=== PATIENT | female | born 1970 | race Caucasian/White ===

== ENCOUNTER 2025-01-25 11:58 | Outpatient (CLI) | payer OTHER, SELFPAY ==
--- NOTE | 2025-01-25 09:15 | DI.RAD_ITS ---
Exam(s) XR STANDING ALIGNMENT XR KNEE RT 1V EXAM: XR STANDING ALIGNMENT CLINICAL HISTORY: DJD R KNEE. TECHNIQUE: 2D digital imaging was performed. Five images were obtained. COMPARISON: CR XR KNEE 4 VIEW RIGHT from 06/09/2024 MR MR KNEE RT WO CONTRAST from 06/22/2024 FINDINGS: BONES: The hips are well maintained. In the right knee, there is fwzf-wk-ejisoeik narrowing of the medial femoral tibial joint. There are small osteophytes seen in both the medial femoral tibial and patellofemoral joint spaces. The left knee shows minimal degenerative change with tiny osteophytes seen both medially and laterally.There is no significant leg length discrepancy. SOFT TISSUE: Normal. IMPRESSION: Ujcg-[id number] osteoarthritis of the right knee. DATA REPOSITORY: RADIATION DOSE DELIVERED:
--- NOTE | 2025-01-25 09:15 | DI.RAD_ITS ---
Exam(s) XR STANDING ALIGNMENT XR KNEE RT 1V EXAM: XR STANDING ALIGNMENT CLINICAL HISTORY: DJD R KNEE. TECHNIQUE: 2D digital imaging was performed. Five images were obtained. COMPARISON: CR XR KNEE 4 VIEW RIGHT from 06/09/2024 MR MR KNEE RT WO CONTRAST from 06/22/2024 FINDINGS: BONES: The hips are well maintained. In the right knee, there is mcez-ay-lpdpjwnq narrowing of the medial femoral tibial joint. There are small osteophytes seen in both the medial femoral tibial and patellofemoral joint spaces. The left knee shows minimal degenerative change with tiny osteophytes seen both medially and laterally.There is no significant leg length discrepancy. SOFT TISSUE: Normal. IMPRESSION: Huuy-di-mzunzdhz osteoarthritis of the right knee. DATA REPOSITORY: RADIATION DOSE DELIVERED:
== END 2025-01-25 11:59 | disposition home or self-care (01) ==
LOC: DIORS 11:58
PROVIDERS: PCP Physician Assistant Medical; Visit Provider Physician Assistant
DX: M17.11 Unilateral primary osteoarthritis, right knee (principal)
CPT/HCPCS: 73560; 77073

== ENCOUNTER 2025-01-25 13:22 | Outpatient (REF) | payer OTHER, SELFPAY ==
[2025-01-25 12:47] LABS: HCT 43.1 % (36.0-46.0); HGB 13.7 g/dL (11.2-15.7); MCH 28.5 pg (27.0-33.0); MCHC 31.8 % (32.0-36.0); MCV 90 fL (80-95); MPV 9.5 fL (8.0-11.0); Platelet Count 417 10^3/uL (130-400); RBC 4.81 10^6/uL (3.93-5.22); RDW 13.2 % (11.7-14.6); RDW-SD 43.8 fL; WBC 7.12 10^3/uL (4.4-10.8)
[2025-01-25 13:01] LABS: Anion Gap 8.1 mmol/L (3-11); BUN 9 mg/dL (9-23); CO2 27.9 mmol/L (20.0-31.0); Calcium 9.0 mg/dL (8.3-10.6); Chloride 105 mmol/L (98-107); Glucose 92 mg/dL (74-106); Potassium 3.9 mmol/L (3.5-5.1); Sodium 141 mmol/L (136-145)
== END 2025-01-25 13:23 | disposition home or self-care (01) ==
LOC: LBN 13:22
PROVIDERS: PCP Physician Assistant Medical; Visit Provider Student in an Organized Health Care Education/Training Program
DX: M17.11 Unilateral primary osteoarthritis, right knee (principal); Z01.818 Encounter for other preprocedural examination
CPT/HCPCS: 80048; 85027

== ENCOUNTER 2025-02-02 06:50 | Day surgery (SDC) | payer OTHER, SELFPAY ==
[2025-02-02] VITALS (16 sets, daily range): BP systolic 100–159; BP diastolic 31–81; PULSE 66–89; RESP 7–32; TEMP 35.8–36.8; O2SAT 93–100; BMI 46.5
--- NOTE | 2025-02-02 07:12 | W.PM.DSUDISC ---
Date of service: 02/02/25 Discharge Plan Disposition Patient Disposition: Home Condition: Good Discharge Details Reason For Visit: Right knee DJD Attending Provider: Gerardo Worley Primary Care Provider: Jody Ramirez Home Meds and New Rx's Prescriptions: New acetaminophen 500 mg tablet 1,000 mg PO Q8H PRN Qty: 90 0RF Rx Instructions: Take two tablets up to every 8 hours as needed for pain aspirin 81 mg tablet,delayed release (DR/EC) 81 mg PO BID 30 Days Qty: 60 0RF celecoxib [Celebrex] 200 mg capsule 200 mg PO BID PRNQty: 60 0RF Rx Instructions: Take one tablet twice daily for pain and inflammation docusate sodium [Colace] 100 mg capsule 100 mg PO BID Qty: 28 0RF pantoprazole 40 mg tablet,delayed release (DR/EC) 40 mg PO DAILY Qty: 14 0RF Rx Instructions: Take one tablet once daily dexamethasone 4 mg tablet 4 mg PO DAILY Qty: 2 0RF Rx Instructions: Take one tablet once daily for two days gabapentin 300 mg capsule 300 mg PO QHS Qty: 14 0RF Rx Instructions: Take one tablet at bedtime oxycodone 5 mg tablet 5 mg PO Q4H PRNQty: 18 0RF Rx Instructions: Take one tablet up to every 4 hours as needed for severe postoperative pain Discontinued ibuprofen 800 mg tablet 800 mg PO TID acetaminophen 500 mg capsule 1,000 mg PO Q6H PRN Discharge Instructions Additional Instructions: Total Knee Discharge Instructions Activity: The most important activity is to walk and to work on gentle motion (both flexion and extension). You should try to take short walks a few times a day. It is important that when resting you work on keeping the knee straight. Avoid putting a pillow behind the knee as this will encourage flexion. Work on range of motion exercises as provided by Physical Therapy. - Start outpatient physical therapy within 2 weeks. - You should wear the RACHELE hose on both legs for 2 weeks. You may remove these at night. You may also use any compression sock in place of the RACHELE hose. - Utilize [employer] to review exercises, see videos on exercises and obtain basic information pertaining to your surgery and your recovery. Dressing: Remove the Alvin wrap by 2 days after your surgery and put on the RACHELE stocking given to you from the hospital. Keep the surgical dressing (underneath the ALVIN wrap) in place for at least one week. After the first week it may be removed and replaced with light gauze and tape or nothing. The wound and dressing may get wet after 3 days but avoid soaking the dressing or otherwise it will need to be changed. Many people prefer covering the dressing with cling wrap (saran wrap) to minimize it from getting soaked. If it gets wet, just pat dry. If it starts to peel off then it will need to be changed. Medications: - You should take Tylenol and anti-inflammatory Celebrex as your primary pain control medications. If the Celebrex is too expensive or not covered, please call the office for another alternative (Advil/Ibuprofen or Naproxen/Aleve) - You have been prescribed a stronger pain medication Oxycodone for breakthrough pain, take as needed as prescribed. - You have also been prescribed a stomach acid reduction agent Pantoprozole to help reduce stomach acid and reflux. - You have been prescribed Gabapentin to take at night for restlessness and nerve pain. - You will be taking Aspirin 81mg twice a day for DVT prevention unless instructed otherwise. - You have also been prescribed Decadron to take to control post-operative nausea and pain. You will start this tomorrow. - If you have constipation you should take Colace (which has been prescribed) or Miralax (which is available [id number]). It takes most people 3-4 days to have a bowel movement. Follow-up: 2 weeks If you have any acute concerns or questions, please do not hesitate to contact the office at [phone]. You may contact Dr. Worley with any questions after hours through the hospital at [phone] or on his cell phone at [phone]. Stand Alone Forms: Portal Information Referrals: Gerardo Worley MD [ [facility] STAFF PHYSICIAN, Orthopaedic Surgical] Equipment/Supplies: Walker Activity:: Elevate Remove Dressings/Wound Care:: Do Not Remove Shower/Bathe:: Cover Diet:: As Tolerated Discharge Orders Discharge Orders: Discharge Order (Routine); Ordered 02/02/25 Ordered By: Michelle Quispe
[2025-02-02] MEDS: Gabapentin 300 MG CAP PO (08:01)
[2025-02-02] MEDS: Acetaminophen 500 MG TAB 1000 MG PO (08:01)
[2025-02-02] MEDS: Celecoxib 200 MG CAP 400 MG PO (08:01)
--- NOTE | 2025-02-02 08:01 | W.ANESPRE ---
General Info Date of Service Date Performed: 02/02/25 Height: 5 ft 1 in Weight: 111.584 kg Body Mass Index (BMI): 46.5 Surgical Procedure: Operation Date: 02/02/25 09:25 Proposed Procedure Side Surgeon p Knee Total Arthroplasty Right Gerardo Worley MD Meds Allergies and Home Medications Allergies Allergy/AdvReac Type Severity Reaction Status Date / Time Sulfa (Sulfonamide Allergy Unknown Hives Verified 02/02/25 07:47 Antibiotics) Home Medication ?Medication ?Instructions ?Recorded acetaminophen 500 mg tablet 1,000 mg (2 x 500 mg) PO Q8H PRN 02/02/25 pain #90 tabs aspirin 81 mg tablet,delayed 81 mg PO BID 30 days #60 tabs 02/02/25 release celecoxib 200 mg capsule (Celebrex) 200 mg PO BID PRN #60 caps 02/02/25 dexamethasone 4 mg tablet 4 mg PO DAILY #2 tabs 02/02/25 docusate sodium 100 mg capsule 100 mg PO BID #28 caps 02/02/25 (Colace) gabapentin 300 mg capsule 300 mg PO QHS #14 caps 02/02/25 oxycodone 5 mg tablet 5 mg PO Q4H PRN #18 tabs 02/02/25 pantoprazole 40 mg tablet,delayed 40 mg PO DAILY #14 tabs 02/02/25 release Current Visit Medications: Current Medications Generic Name Dose Route Start Last Admin Trade Name Freq PRN Reason Stop Dose Admin Acetaminophen 1,000 mg 02/02/25 06:00 Acetaminophen 500 Mg Tab PO 02/02/25 23:59 PREOP PJ Celecoxib 400 mg 02/02/25 06:00 Celecoxib 200 Mg Cap PO 02/02/25 23:59 PREOP PJ Gabapentin 300 mg 02/02/25 06:00 Gabapentin 300 Mg Cap PO 02/02/25 23:59 PREOP PJ Hydromorphone HCl 0.5 mg 02/02/25 07:11 Hydromorphone 2 Mg/Ml Syr IVP 03/04/25 07:10 Q2H PRN PRN Ringer's Solution 1,000 mls @ 80 mls/hr 02/02/25 06:00 IV 02/02/25 23:59 INFUSION PJ Cefazolin Sodium/Dextrose 2 gm in 50 mls @ 100 mls/hr 02/02/25 06:00 Ancef Duplex IVPB 02/02/25 23:59 PREOP PJ Tranexamic Acid/Sodium Chloride 1,000 mg in 100 mls @ 600 mls/hr 02/02/25 06:00 IVPB 02/02/25 23:59 PREOP PJ Cefazolin Sodium/Dextrose 1 gm in 50 mls @ 100 mls/hr 02/02/25 08:00 Ancef Duplex IVPB 02/03/25 00:29 Q8H PJ Oxycodone HCl 0 mg 02/02/25 07:11 Oxycodone 5 Mg Tab PO 03/04/25 07:10 Q3H PRN PRN Pain Sodium Chloride 0 ml 02/02/25 06:00 Normal Saline Flush 10 Ml Syr IV 02/02/25 23:59 PRN PRN Sodium Chloride 0 ml 02/02/25 06:00 Normal Saline 10 Ml Vial IJ 02/02/25 23:59 DIRECTED PRN Sterile Water 0 ml 02/02/25 06:00 Water,Injection,Sterile 10 Ml Vial IJ 02/02/25 23:59 DIRECTED PRN Tranexamic Acid 1,300 mg 02/02/25 07:11 Tranexamic Acid 650 Mg Tab PO 03/04/25 07:10 ONCE PRN postoperative PFSH Active Problems Active Problems: Problem Status Onset Code Degenerative joint disease of right knee Chronic M17.11 Surgical History Surgical History Hx of wisdom tooth extraction Hx of colonoscopy Hx of arthroscopy of knee Right Hx of thumb surgery Hx of section Tobacco Passive smoking exposure: No Alcohol Alcohol Intake: current Alcohol intake frequency: a few times a month Substance Use Substance use type: marijuana Vital Signs and Lab Results Vital Signs Most Recent Vital Signs in EMR: Most Recent Vital Signs Temp Pulse Resp BP Pulse Ox 36.3 C L 77 16 137/59 L 97 02/02/25 07:55 02/02/25 07:55 02/02/25 07:55 02/02/25 07:55 02/02/25 07:55 Lab Results Complete Blood Count: WBC, (4.4-10.8) 7.12 10^3/uL 01/25/25, 10:35 RBC, (3.93-5.22) 4.81 10^6/uL 01/25/25, 10:35 Hgb, (11.2-15.7) 13.7 g/dL 01/25/25, 10:35 Hct, (36.0-46.0) 43.1 % 01/25/25, 10:35 Plt Count, (130-400) 417 10^3/uL H 01/25/25, 10:35 Complete Metabolic Panel: Sodium, (136-145) 141 mmol/L 01/25/25, 10:35 Potassium, (3.5-5.1) 3.9 mmol/L 01/25/25, 10:35 Chloride, (98-107) 105 mmol/L 01/25/25, 10:35 Carbon Dioxide, (20.0-31.0) 27.9 mmol/L 01/25/25, 10:35 BUN, (9-23) 9 mg/dL 01/25/25, 10:35 Creatinine, (0.55-1.02) 0.69 mg/dL 01/25/25, 10:35 Est GFR (CKD-EPI 2020), (mL/min/1.73m2) 88.26 01/25/25, 10:35 Calcium, (8.3-10.6) 9.0 mg/dL 01/25/25, 10:35 Glucose, (74-106) 92 mg/dL 01/25/25, 10:35 Anesthesia Assessment and Plan Anesthesia History Personal History: No History of Anesthesia Complications Family History: No Family History of Anesthesia Complications Exercise Tolerance Exercise Tolerance: Metabolic Equivalents>4 Pertinent Negatives Pertinent Negatives: No Symptoms of GERD, No Major Cardiovascular Symptoms or Complaints, No Major Pulmonary Symptoms or Complaints and No History of CVA/TIA Cardiac & Pulmonary Exam Cardiac Exam: Normal S1/S2 Heart Sounds Pulmonary Exam: Clear Bilateral Breath Sounds Implantable Cardiac Device Does patient have a Pacemaker or an ICD?: No Airway Exam Known Difficult Airway: No Mallampati Class: 2 Mouth Opening: Normal (> 3cm) Thyromental Distance: Greater than 3 cm Neck Range of Motion: Full ROM Neck Circumference: Normal Teeth Condition: Normal Dentition ASA Classification ASA Score: ASA 3 Emergency Case?: No NPO Status NPO Status: NPO Clears >2 hours, Solids >8 hours Anesthesia Plan Resuscitation Status: Full Code Anesthesia Technique: Spinal Anesthesia Airway Planned: Natural Airway Pain Management: Surgeon and patient request nerve block Monitors Used: Standard Monitors
[2025-02-02] MEDS: Lactated Ringers 1,000 ML 80 ML IV (08:05)
[2025-02-02] MEDS: ceFAZolin 2 GM/50 ML BAG IVPB (08:52)
--- NOTE | 2025-02-02 09:04 | W.PM.OP ---
Operative Note Operative Note PRE-OP DIAGNOSIS: Right Knee Osteoarthritis POST-OP DIAGNOSIS: same PROCEDURE: Right Total Knee Replacement SURGEON: Gerardo Worley INFORMATION SECURITY ARCHITECT: iMchelle Quispe ANESTHESIA TYPE: Spinal Refer to Anesthesia Record ESTIMATED BLOOD LOSS: 100 PATHOLOGY: none sent TOURNIQUET TIME: 0 COMPLICATIONS: None Patient was transported to: PACU Patient's condition: stable Implants: 1. Depuy Attune Cementless Cruciate Retaining Femoral Component, Size 5 2. Depuy Attune Cementless Fixed Bearing Tibial Component, Size 5 3. Depuy Attune 5x7mm CR/FB Poly Indications: I have seen Malia in clinic for symptoms of knee arthritis, confirmed with radiographic findings. She has exhausted nonoperative methods and was having significant limitations in daily function and desired better function and less pain. I discussed the technical details of a knee replacement. I explained the risks of the procedure to include, but not limited to, bleeding, infection, pain, stiffness, fracture, damage to nerves and vessels, damage to muscles and tendons, loosening, need for repeat procedure, blood clot and cardiopulmonary demise. Despite these risks, Malia elected to proceed. Findings: There was significant signs of arthritis throughout the knee. Procedure Description: Malia was greeted in the preoperative holding area where the correct side was identified and marked. The consent was reviewed with the patient and signed. The history and physical was updated. All questions were answered. Preoperative medications were administered: Acetaminophen 1000mg, Celebrex 400mg, and Gabapentin 300mg. An adductor canal block was then administered by the anesthesia team in the DSU. Malia was taken back to the operating room. A spinal anesthestic was then administered. The patient was placed into the supine position on the operating room table. Posts were placed for positioning during the procedure. All bony prominences were well padded. Prophylactic antibiotics in the form of Cefazolin were administered. 1g of Tranxemic Acid was given intravenously within 30 minutes of incision. The right leg was then prepped with Chloraprep and draped in a standard fashion with impervious stockinette. A second prep with Chloraprep was performed prior to application of Iodine impregnated skin protection. A timeout to confirm correct identity, side and site, procedure, allergies, anesthesia, and medical concerns was performed. With the knee in some flexion, a midline incision was made overlying the knee. Full thickness skin flaps were raised once the extensor mechanism was encountered. These were raised medially and laterally. Any bleeding was controlled with electrocautery. Once the extensor mechanism was fully exposed, a medial parapatellar arthrotomy was performed in a flexed position. All bleeding from the arthrotomy and the geniculate arteries was coagulated. A medial subperiosteal peel was performed with electrocautery to the midcoronal plane. The fat pad was removed while keeping the patellar tendon protected. The anterior distal femur synovium was removed for later visualization. The ACL and PCL were resected and the anterior horn of the lateral meniscus was transected. The knee was then flexed with the patella everted. Using a step drill, and based on preoperative templating, the femoral canal was entered. This was done with a step drill without any difficulty. The intramedullary distal femoral cut guide was inserted, set to a 6 degree valgus cut and 9mm cut thickness. The distal femoral cut guide was then held in position and pinned. With the soft tissues protected, the distal cut was performed. This was passed over a few times to ensure a planar cut. I then turned attention to the tibia. The extramedullary guide was placed onto the leg. The distal aspect was slid medial to adjust for position of center of ankle and stay in line with shaft of the tibia. Approximately 5 degrees of posterior slope was kept in the proximal cutting guide. The center of the guide was aligned with the PCL. The stylus was used to assess cut thickness. The medial side, most involved side, was set for a 5mm cut, corresponding to 9mm laterally. This was then held in position and pinned into place with 2 additional pins and a cross pin for stability. The medial and lateral collateral ligaments were protected and the cut was performed. With this completed, it was assessed and noted to be of appropriate dimensions. The guide was removed. A spacer block was inserted and the knee was brought into extension. The 7mm spacer block provided full extension, without hyperextension and with stability of both the medial and lateral collateral ligaments was assessed. The pins from the femur and the tibia were then removed. The distal femur was then sized. The anterior stylus was placed onto the lateral ridge of the anterior femur. This indicated a size 5 femur. The external rotation of the guide was adjusted to 5 degrees to match the epicondylar axis, perpendicular to Margie?s line. The 4-in-1 cutting guide was the placed. The posterior medial femur cut was evaluated and appeared of good thickness. The spacer block was inserted underneath the cutting guide and stability was confirmed in 90 degrees of flexion. An norma wing was used to confirm appropriate position of the anterior cut to avoid notching. This cutting guide was ensured to be flush on the cut surface and then pinned into place with headed pins. While protecting the soft tissues, quad tendon, and collateral ligaments, the anterior and posterior cuts were performed with a saw. The central two pins were removed and the posterior and anterior chamfers were cut next. The notch-cutting guide was placed. This was pinned to lateralize the femoral component as much as possible while keeping it flush on the cut surface. This was then pinned into position. A reciprocating saw was used to make the notch cut. A rasp smoothed the cut surfaces. The medial and lateral menisci were removed. A trial femoral component was then inserted, impacted down to the cut surfaces, and the lug holes were drilled. A provisional trial tibial component was placed and the knee was brought through range of motion. There was noted to be excellent extension and flexion. There was no significant instability. The patella was tracking without thumbs. A size 7mm polyethylene component provided the best range of motion and stability with less than 2mm gapping with medial and lateral stress and full extension without significant hyperextension. The tibial cut surface was fully exposed. The tibia was then sized as a 5. The tibia had been previously marked during trialing to correspond to the center of the tibial component to help with rotation. The trial was aligned to this nicolasa, approximately rotated to the medial 1/3rd of the tibial tubercle. The trial was pinned into place. The tibia was prepared with a reamer and a keel punch and lug holes. The trial components were removed. The final components were opened on the back table. The periosteal and capsular tissues, especially posteriorly, around the knee were then systematically injected with a periarticular cocktail consisting of 246mg of Ropivacaine, 0.5mg of Epinephrine, 0.08mg of Clonidine, and 30mg of Ketorolac, diluted to 100cc. On the back table, with the implants opened. The cementless knee components were placed. Starting with the tibial component, the tibia was subluxed anteriorly and the lug holes of the component were lined up. The tibia was then impacted with an impactor and mallet until the tibial component was in contact with the tibia. Then, the femoral component was inserted. The lug holes were aligned and the component was impacted into position. The final polyethylene component was inserted. The knee was irrigated with Surgiphor Betadine solution. This was allowed to sit in the knee for 3 minutes and then it was irrigated out with saline. The patella was tracking with a no-thumbs technique. A complete synovectomy was performed around the periphery of the patella. A lateral facetectomy was also performed. The capsule was then reapproximated with a No. 1 Vicryl at multiple locations. The capsule was finally closed with a No. 2 Stratafix, barbed suture. Deep tissues were then reapproximated with 0 Vicryl and 2-0 Vicryl. The skin was closed with a running 3-0 Monocryl in a subcuticular fashion. This was reinforced with skin glue. A Mepilex silver dressing was applied along with a [id number] ALEISHA wrap. A CryoCuff was applied. Malia was transferred to the hospital bed without difficulty an suffering no apparent complication. Malia has a good prognosis. Physical therapy will start today and without restrictions, weight-bearing as tolerated. Aspirin 81mg BID will be used for DVT prophylaxis. Date of Procedure: 02/02/25
[2025-02-02] MEDS: TRANEXAMIC ACID/SOD. CHL. 1,000 MG/100 ML BAG 600 MG IVPB (09:10)
--- NOTE | 2025-02-02 09:24 | W.ANESNERVE ---
Nerve Block Single Injection Procedure Date and Time Date Performed: 02/02/25 Procedure Start: 08:30 Location Where Procedure Performed Procedure Location: Day Surgery Unit Reason Performed: Postoperative Analgesia Requesting Provider: Gerardo Worley Timeout Performed Timeout Performed: Yes Monitoring Used ECG, Blood Pressure, SpO2 and See EMR for corresponding vital signs Sterility Sterility: Hand Hygiene, Surgical Cap, Surgical Mask, Sterile Gloves and Chlorhexidine Sedation Given During Procedure Sedation Given (Indicate Dose Given): No Sedation given Patient Mental Status Patient Mental Status: Awake Nerve Block 1st Nerve Block: Laterality: Right Block Type: Adductor Canal Ultrasound Image Saved?: Yes Needle / Catheter Used: 120mm SonoPlex II Local Anesthetic Bolus (Indicate Dose Given): Lidocaine used for local infiltration of skin, Injected in 3-5ml increments after negative blood aspiration, Bupivacaine 0.25% Dose:: 10ml and Exparel Dose:: 10ml Additives (Indicate Dose Given): None Ultrasound: Sterile probe cover and gel used Nerve Stimulator: Supplement to Ultrasound use and No twitch or parasthesia noted < 0.5 mA (Initial approach had quad activation, redurected and noted transient paresthesia, gone with repositioning. Continued nerve block with new trajectory with ease.) Paresthesia: Right Paresthesia Duration: Transient Procedure Tolerated: No Complications and Patient tolerated well Procedure Outcome: Successful Performed By: Montana Knight
[2025-02-02] MEDS: ROPIvacaine/EPI/CLONIDINE/KET 50 ML SYRINGE IJ (09:27)
--- NOTE | 2025-02-02 13:02 | W.ANESPOSTOP ---
Postoperative Evaluation Date, Time and Location Date Performed: 02/02/25 Time Performed: 13:02 Patient Location: Day Surgery Unit Vital Signs Most Recent Imported Vital Signs: Most Recent Vital Signs Temp Pulse Resp BP Pulse Ox 36.1 C L 75 18 141/59 H 98 02/02/25 12:23 02/02/25 12:23 02/02/25 12:23 02/02/25 12:23 02/02/25 12:23 Pain Score Most Recent Pain Score: Most Recent Pain Score Pain Level 0 02/02/25 11:45 Assessment Mental Status: Awake (Alert & Oriented to Patient Baseline) Airway and Respiratory Function: Patent airway with normal (patient baseline) respiratory exam Cardiovascular Function: Hemodynamically Stable Hydration Status: Adequately Hydrated Nausea & Vomiting: No Nausea or Vomiting Pain: Pt. Denies Any Pain Peripheral Nerve Block: Regional nerve block not resolved at time of post operative discharge
--- NOTE | 2025-02-02 13:12 | IN_ITS ---
PT Notes Visit Reasons: Right knee DJD ? Physical Therapy Day Surgery Initial Evaluation Date: 02/02/2025 Referring Doctor: Michelle Quispe [employer] PT Orders: PT CONSULT: Day surgery Eval Precautions: Standard, fall, WBAT Patient Profile/Admitting Diagnosis: 54 year old female presenting status post elective right TKA with adductor nerve block, spinal anesthesia by Dr. Worley on 02/02/2025.. Post op uncomplicated PMHX: DJD Right Knee Social History/Home Situation: Pt lives with in a double wide trailer with 3 TEOFILO with a railing on the left. Equipment Owned/DME: FWW, able to get a cane if need be. Subjective: Pt reported feeling well. Objective: General Observation: Pt laying in recliner with feet up and cryo- Cuff on right knee. present Mental Status: Alert and oriented x4. Pain: 0/10 laying in recliner. 2/10 during ambulation ROM: Right Upper Extremity:? WFL Left Upper Extremity:? WFL Right Lower Extremity: WFL, excepts -5 degrees knee extension, and 100 degrees knee flexion Left Lower Extremity: WFL Strength: Right Upper Extremity: grossly 5/5 Left Upper Extremity: grossly 5/5 Right Lower Extremity: grossly 4/5 excepts knee flexion 3-/5 knee extension 3/5 hip flexion 3+/5; strong Quad set, no lag with short range SLR Left Lower Extremity: grossly 5/5 Sensation: intact Bed Mobility/Transfers: Supine to sit N/A bc pt already in recliner. Sit to stand: supervision FWW Stand to sit: Supervision FWW Bed to chair: Supervision FWW Gait: Pt ambulated 45 feet FWW supervision. Pt needed verbal cueing for straightening right knee during initial contact, and FWW placement. Pt had a step to patten with decrease in step height and length. Stairs: Pt ambulated 2 6inch steps and 3 4inch steps with railing on left and cane in the right. PT provided verbal cueing for foot placement and sequence. Pt had a step to pattern with increase in time for completion. Balance: Static Sitting: normal Dynamic Sitting: normal Static Standing: good Dynamic Standing: good Special Tests: Mobility Limitations Standardized Measure [facility] 6 clicks Basic Mobility Inpatient Short Form: Raw Score: 22? CMS Score: 20.91% Informed Consent/Education:? Patient instructed in purpose of PT consult.? Packet containing TKA exercise protocol has been given to patient.? Education and training on initial set of exercises that can be done at home have been c ompleted with patient. Therapeutic activity 13580: Ambulation: Pt ambulated 45 feet FWW supervision. Pt needed verbal cueing for straightening right knee during initial contact, and FWW placement. Stairs: Pt ambulated 2 6inch steps and 3 4inch steps with railing on left and cane in the right supervision. PT provided mild verbal cueing for foot placement and sequence. HEP: Glute set: [id number] Quad sets: [id number] Angle pumps: [id number] Heel slides: [id number] Straight leg raise: [id number] knee extension with pillow at ankle Assessment: Pt was able to ambulate FWW and perform stairs railing on left and cane on the right with supervision. Pt needed mild cueing for FWW placement, and foot placement with stairs. After cueing from PT, pt was able to ambulate and showed no concerns of falling. The second time pt performed the stairs, she was able to correct herself with foot sequence without PT providing verbal cueing. . Pt will continue ?with HEP until follow up appointment and outpt PT post follow up to address remaining deficit. Patient presents with clinical signs and symptoms consistent with current/admitting diagnoses that have resulted to mobility limitations, gait instability, generalized weakness, and impairment of motor control as demonstrated by the following impairment level findings: 1.? Decreased strength to right knee major muscle groups 2.? Impaired standing balance 3.? Limitation of joint range of motion in right knee 4. Pain in right knee 5. decreased in activity tolerance. Impairments are contributing to the following functional limitations: 1.? Inability to safely ambulate without assistive device 2.? Increase completion time for mobility ADL performance 3.? Increased fall risk 4. Difficulty performing stairs without assistance/device Patient is assessed as a Low complexity based on the following: History: 54-year-old female with impairment level findings, functional limitations, and past medical history as indicated above Examination: Demonstrable impairment in strength, balance, and mobility level with underlying impairments and functional limitations as documented above Presentation: Stable but evolving Decision Making: Low Goals: N/A.? PT evaluation and 1-2 treatment sessions only for functional mobility training using recommended AD and for HEP instruction. Plan of Care/Treatment Plan: N/A.? PT evaluation and 1-2 treatment session only for functional mobility training using recommended AD and for HEP instruction. DISCHARGE RECOMMENDATIONS: Home with HEP until follow up appointment and outpt PT post follow up appointment. TREATMENT CODE/TIME: 50307,[id number]/12:30pm-12:55pm Thank you for the opportunity to participate in the care of this patient. Written by Ariel Souza DPTS Supervised by: Hilda August PT ? [facility]
[2025-02-02] MEDS: Tranexamic Acid 650 MG TAB 1300 MG PO (13:30)
== END 2025-02-02 14:08 | disposition home or self-care (01) ==
PROVIDERS: PCP Physician Assistant Medical; Visit Provider Student in an Organized Health Care Education/Training Program
PROC: (CPT 27447; principal; 2025-02-02 09:15)
DX: M17.11 Unilateral primary osteoarthritis, right knee (principal); G89.18 Other acute postprocedural pain; M25.561 Pain in right knee
CPT/HCPCS: 27447; 64447; 81025; 97161; 97530; C1776; J0665; J0666; J0690; J1100; J2250; J2401; J2405; J2704

== ENCOUNTER 2025-02-15 11:16 | Outpatient (CLI) | payer OTHER, SELFPAY ==
--- NOTE | 2025-02-15 09:45 | DI.RAD_ITS ---
Exam(s) XR STANDING ALIGNMENT XR KNEE RT 1V EXAM: XR STANDING ALIGNMENT and XR knee RT 1 V CLINICAL HISTORY: 1ST POST OP S/P R TKA. TECHNIQUE: 2D digital imaging was performed. Five images were obtained. COMPARISON: CR XR STANDING ALIGNMENT from 01/25/2025 CR XR KNEE RT 1V from 01/25/2025 CR XR KNEE RT 1V from 02/15/2025 FINDINGS: BONES: The hips are well maintained. In the left knee, there is mild joint space narrowing and spurring in the medial femoral tibial joint. There has been interval placement of a right total knee arthroplasty. The orthopedic hardware appears in good position. There are no suspicious lucencies about the orthopedic hardware to suggest loosening. The ankles are well maintained.The left lower extremity is 1 cm longer than the right lower extremity. SOFT TISSUE: Normal. IMPRESSION: Interval placement of a right total knee arthroplasty. DATA REPOSITORY: RADIATION DOSE DELIVERED:
== END 2025-02-15 11:17 | disposition home or self-care (01) ==
LOC: DIORS 11:17
PROVIDERS: PCP Physician Assistant Medical; Visit Provider Student in an Organized Health Care Education/Training Program
DX: Z96.651 Presence of right artificial knee joint (principal)
CPT/HCPCS: 73560; 77073